=== PATIENT | male | born 1975 | race Caucasian/White ===

== ENCOUNTER 2021-04-26 21:58 | Emergency (ER) | payer OTHER ==
[~2021-04-26] VITALS: Ht 185.4 cm; Wt 131.5 kg
== END 2021-04-26 23:57 | disposition home or self-care (01) ==
LOC: ER 21:58
DX: S51.811A Laceration without foreign body of right forearm, initial encounter (principal); X58.XXXA Exposure to other specified factors, initial encounter
CPT/HCPCS: 12004; 73070; 99283-25

== ENCOUNTER 2021-05-09 18:14 | Emergency (ER) | payer OTHER ==
[~2021-05-09] VITALS: Ht 185.4 cm; Wt 131.5 kg
== END 2021-05-09 19:36 | disposition home or self-care (01) ==
LOC: ER 18:14
DX: S51.811D Laceration without foreign body of right forearm, subsequent encounter (principal)